=== PATIENT | female | born 1960 | race African-American/Black ===

== ENCOUNTER 2016-08-23 02:12 | Observation (INO) | payer BC ==
[~2016-08-23] VITALS: Ht 157.5 cm; Wt 97.5 kg
[2016-08-23] MEDS ORDERED: MORPHINE SULFATE 4 MG/ML CPJ (NOT FOR IM USE) IV STA (03:41)
[2016-08-23] MEDS ORDERED: ONDANSETRON HCL 4MG/2ML VIAL IV STA (03:41)
[2016-08-23] MEDS ORDERED: SODIUM CHLORIDE 0.9% 1,000 ML IV ONE (03:41)
[2016-08-23 03:56] LABS: BASOPHILS % 0.5 % (0.0-2.0); EOSINOPHILS % 0.4 % (0.0-5.0); HEMATOCRIT. 40.5 % (36.0-48.0); HEMOGLOBIN. 13.1 g/dL (12.0-16.0); LYMPHOCYTES % 20.4 % (20.0-50.0); MEAN CORPUSCULAR HEMOGLOBIN 25.5 pg (28.0-32.0); MEAN CORPUSCULAR VOLUME 78.8 fL (81.0-99.0); MEAN PLATELET VOLUME 7.3 fl (7.4-10.4); MONOCYTES % 4.9 % (2.0-8.0); NEUTROPHILS % 73.8 % (40.0-76.0); PLATELET 239 x1000/uL (130-400); RED BLOOD CELL COUNT 5.15 mill/uL (4.2-5.4); RED CELL DISTRIBUTION WIDTH 14.2 % (11.6-14.6)
[2016-08-23 04:11] LABS: CARBON DIOXIDE 27 mEq/L (21-32); CHLORIDE 102 mEq/L (98-107)
[2016-08-23] MEDS ORDERED: SKIN ADHESIVE 0.7 GM EA TOP ONE ×2 (07:08→07:09)
[2016-08-23] MEDS ORDERED: BUPIVACAINE HCL/PF 0.5% (5MG/ML) 10ML ONE ×2 (07:09→08:05)
[2016-08-23] MEDS ORDERED: ACETAMINOPHEN 325MG TABLET PO PRN ×2 (07:30→12:45)
[2016-08-23] MEDS ORDERED: MORPHINE SULFATE 4 MG/ML CPJ (NOT FOR IM USE) IV PRN (07:30)
[2016-08-23] MEDS ORDERED: HYDROCODONE/ACETAMINOPHEN 5/325MG TABLET PO PRN ×2 (07:30)
[2016-08-23] MEDS ORDERED: ACETAMINOPHEN 650MG SUPP PR PRN (07:30)
[2016-08-23] MEDS ORDERED: MORPHINE SULFATE 2 MG/ML CPJ (NOT FOR IM USE) IV PRN (07:30)
[2016-08-23] MEDS ORDERED: FENTANYL CITRATE/PF 50MCG/ML 2ML VIAL ONE (07:39)
[2016-08-23] MEDS ORDERED: MIDAZOLAM HCL 2 MG/2 ML VIAL ONE (07:39)
[2016-08-23] MEDS ORDERED: PROPOFOL 200MG/20ML VIAL IV ONE (07:42)
[2016-08-23] MEDS ORDERED: LIDOCAINE HCL 1% 20ML VIAL (Pyxis) INJ ONE (07:42)
[2016-08-23] MEDS ORDERED: ROCURONIUM BROMIDE 10MG/ML VIAL 5ML IV ONE (07:42)
[2016-08-23] MEDS ORDERED: CEFAZOLIN SODIUM 1000MG/VIAL ONE (07:53)
[2016-08-23] MEDS ORDERED: ONDANSETRON HCL 4MG/2ML VIAL ONE (07:56)
[2016-08-23] MEDS ORDERED: METOCLOPRAMIDE HCL 10MG/2ML VIAL ONE (07:56)
[2016-08-23] MEDS ORDERED: SODIUM CHLORIDE 0.9% 1,000 ML IV SCH (08:09)
[2016-08-23] MEDS ORDERED: HYDROMORPHONE HCL/PF 2MG/ML CPJ IV PRN (08:15)
[2016-08-23] MEDS ORDERED: ONDANSETRON HCL 4MG/2ML VIAL IV PRN ×2 (08:15→12:45)
[2016-08-23] MEDS ORDERED: GLYCOPYRROLATE 0.2 MG/ML 2ML VIAL ONE ×2 (08:25→08:31)
[2016-08-23] MEDS ORDERED: NEOSTIGMINE METHYLSULFATE 1MG/ML 10 ML VIAL ONE (08:25)
[2016-08-23 11:35] VITALS: BP 141/81
[2016-08-23] MEDS ORDERED: METF500T4 PO (11:51)
[2016-08-23 12:00] VITALS: BP 141/81
[2016-08-23] MEDS ORDERED: ZOLPIDEM TARTRATE 5MG TABLET PO PRN (12:45)
[2016-08-23] MEDS ORDERED: DOCUSATE SODIUM 100MG CAPSULE PO PRN (12:45)
[2016-08-23] MEDS ORDERED: DEXTROSE 50% WATER 50ML SYRINGE IV PRN (12:45)
[2016-08-23] MEDS ORDERED: DIPHENHYDRAMINE 50MG/ML VIAL IV PRN (12:45)
[2016-08-23] MEDS ORDERED: NA PHOS,M-B/NA PHOS,DI-BA ENEMA 118ML PR PRN (12:45)
[2016-08-23] MEDS ORDERED: LORAZEPAM 2MG/ML CPJ IV PRN (12:45)
[2016-08-23] MEDS ORDERED: IPRATROPIUM/ALBUTEROL 0.5-3(2.5)MG/3ML NEB INH PRN (12:45)
[2016-08-23] MEDS ORDERED: NITROGLYCERIN 0.4MG TABLET SL SL PRN (12:45)
[2016-08-23] MEDS ORDERED: CLONIDINE 0.1MG TABLET PO PRN (12:45)
[2016-08-23] MEDS ORDERED: GUAIFENESIN 200MG/10ML SUGAR FREE UDC PO PRN (12:45)
[2016-08-23] MEDS ORDERED: MAGNESIUM/ALUMINUM HYDROXIDE/SIMETHICONE 30ML UDC PO PRN (12:45)
[2016-08-23] MEDS: INSULIN LISPRO 100 UNITS/ML SUBCUT SCH ×3 (13:48→22:49)
[2016-08-23 16:00] VITALS: BP 121/68
[2016-08-23] MEDS: DEXT 5%/0.45% NACL KCL 20MEQ/L 1,000 ML IV SCH (16:19)
[2016-08-23] MEDS: BLOOD SUGAR DIAGNOSTIC STRIP TEST SCH ×2 (16:20→21:00)
[2016-08-23 20:00] VITALS: BP 121/77
[2016-08-23] MEDS: ENOXAPARIN 30MG/0.3ML SYR SUBCUT SCH (21:00)
[2016-08-23] MEDS: LISINOPRIL 20MG TABLET PO SCH (21:00)
[2016-08-24] VITALS: BP 128/76
[2016-08-24] MEDS: DEXT 5%/0.45% NACL KCL 20MEQ/L 1,000 ML IV SCH ×2 (01:39→09:30)
[2016-08-24 04:00] VITALS: BP 125/68
[2016-08-24] MEDS: BLOOD SUGAR DIAGNOSTIC STRIP TEST SCH ×2 (06:42→12:20)
[2016-08-24 07:35] VITALS: BP 120/78
[2016-08-24 08:00] VITALS: BP 120/78
[2016-08-24] MEDS: LISINOPRIL 20MG TABLET PO SCH (08:35)
[2016-08-24] MEDS: ENOXAPARIN 30MG/0.3ML SYR SUBCUT SCH (08:35)
[2016-08-24] MEDS: INSULIN LISPRO 100 UNITS/ML SUBCUT SCH (08:45)
[2016-08-24] MEDS ORDERED: PANTOPRAZOLE SODIUM 40 MG/VIAL IV SCH (09:00)
[2016-08-24 12:02] VITALS: BP 134/81
== END 2016-08-24 12:35 | disposition home or self-care (01) ==
LOC: ER 02:12 → 6EST 06:12 → INTOOBSV 06:12 → EDBEDREQTM 06:14 → EDBEDREQ 06:14 → ENRESERV 06:55 → SUPCPDRO 10:10
PROVIDERS: ADMIT Internal Medicine; ATTEND Internal Medicine
DX: K80.00 Calculus of gallbladder with acute cholecystitis without obstruction (principal); E11.65 Type 2 diabetes mellitus with hyperglycemia; E66.9 Obesity, unspecified; Z98.890 Other specified postprocedural states
CPT/HCPCS: 36415; 47562; 76700; 80053; 82962; 83036; 83690; 85025; 88304; 96372; 96374; 96375; 99285; C9113; G0168; G0378; J0690; J1650; J1815; J2250; J2270; J2405; J2710; J2765; J3010; J3490; J7030; 96361; J2704

== ENCOUNTER 2016-08-28 22:53 | Emergency (ER) | payer BC ==
[~2016-08-28] VITALS: Ht 162.6 cm; Wt 81.0 kg
[~2016-08-28 22:53] MED LIST: METF500T4 PO
[2016-08-28] MEDS ORDERED: SODIUM CHLORIDE 0.9% 1,000 ML IV ONE (23:57)
[2016-08-28] MEDS ORDERED: ONDANSETRON HCL 4MG/2ML VIAL IV STA (23:57)
[2016-08-28] MEDS ORDERED: KETOROLAC 30MG/ML VIAL IV STA (23:57)
[2016-08-29 00:26] LABS: BASOPHILS % 0.3 % (0.0-2.0); EOSINOPHILS % 0.3 % (0.0-5.0); HEMATOCRIT. 39.9 % (36.0-48.0); HEMOGLOBIN. 13.1 g/dL (12.0-16.0); LYMPHOCYTES % 15.6 % (20.0-50.0); MEAN CORPUSCULAR HEMOGLOBIN 25.8 pg (28.0-32.0); MEAN CORPUSCULAR VOLUME 78.7 fL (81.0-99.0); MEAN PLATELET VOLUME 6.9 fl (7.4-10.4); MONOCYTES % 6.5 % (2.0-8.0); NEUTROPHILS % 77.3 % (40.0-76.0); PLATELET 323 x1000/uL (130-400); RED BLOOD CELL COUNT 5.07 mill/uL (4.2-5.4); RED CELL DISTRIBUTION WIDTH 13.7 % (11.6-14.6)
[2016-08-29 00:36] LABS: INR 1.1; PROTHROMBIN TIME 11.1 sec
[2016-08-29 00:45] LABS: CARBON DIOXIDE 28 mEq/L (21-32); CHLORIDE 100 mEq/L (98-107)
[2016-08-29 01:45] LABS: CLARITY URINE TURBID (CLEAR); COLOR URINE YELLOW (YELLOW); GLUCOSE URINE 3+ (NEGATIVE); KETONES URINE 3+ (NEGATIVE); LEUKOCYTE ESTERASE URINE NEGATIVE (NEGATIVE); NITRITE URINE NEGATIVE (NEGATIVE); OCCULT BLOOD URINE NEGATIVE (NEGATIVE); PROTEIN URINE NEGATIVE (NEGATIVE); SPECIFIC GRAVITY URINE 1.024 (1.005-1.030)
[2016-08-29] MEDS ORDERED: ACETAMINOPHEN WITH CODEINE 300/30MG TABLET PO ONE (04:15)
[2016-08-29 04:33] VITALS: BP 138/85
== END 2016-08-29 04:52 | disposition home or self-care (01) ==
LOC: ER 23:10
DX: R10.9 Unspecified abdominal pain (principal); E11.9 Type 2 diabetes mellitus without complications; Z90.49 Acquired absence of other specified parts of digestive tract
CPT/HCPCS: 36415; 74176; 80053; 81001; 81025; 82962; 83690; 85025; 85610; 96360; 96361; 96375; 99285; J1885; J2405; J7030; Z7610